=== PATIENT | male | born 1995 | race Caucasian/White ===

== ENCOUNTER 2018-02-19 22:32 | Emergency (ER) | payer SELFPAY ==
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
[2018-02-20] MEDS ORDERED: Acetaminophen/HYDROcodone 325-5 MG Tab PO ONE (00:32)
[2018-02-20 01:06] LABS: CHLORIDE,CL 103 mmol/L (98-107); SODIUM,NA 139 mmol/L (136-148)
[2018-02-20] MEDS ORDERED: Sodium Chloride 0.9% 1,000 ML IV SCH (01:15)
[2018-02-20] MEDS ORDERED: Iopamidol 755 Mg/ML 100 ML Bottle IVPUSH STA (01:42)
[2018-02-20] MEDS ORDERED: Acetaminophen/HYDROcodone 325-5 MG Tab ONE (02:35)
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
== END 2018-02-20 02:42 | disposition home or self-care (01) ==
LOC: MW.ED 22:32
DX: S42.001A Fracture of unspecified part of right clavicle, initial encounter for closed fracture (principal); I95.9 Hypotension, unspecified; V29.00XA Motorcycle driver injured in collision with unspecified motor vehicles in nontraffic accident, initial encounter
CPT/HCPCS: 70450; 71045; 71260; 72125; 72170; 73000; 74177; 80053; 81001; 85025; 86850; 86900; 86901; 96360; 96361; 99284; A9270; J7040; Q9967